=== PATIENT | female | born 1960 | race Caucasian/White ===

== ENCOUNTER → 2016-11-07 | Outpatient (CLI) | payer MEDICAID ==
[~2016-11-07] MED LIST: methylPREDNISolone 80 MG/ML (DEPO MEDROL) VIAL IM ONE
--- NOTE | 2016-11-08 11:24 | PAIN MANAGEMENT ---
Date of note: 11/07/2016 Procedure: Transforaminal epidural steroid injection at L4-5 on the right side Total fluoroscopic exposure time: 1 minute 32 seconds This is a 56-year-old patient of Dr. Aniket Merritt. The patient presents with a longstanding history of back pain. She has had multiple lumbar surgeries and cervical surgeries. She has pain, primarily in the right leg, dermatome level of L4. Informed consent was achieved for an epidural steroid using a transforaminal approach and fluoroscopy at L4-5. She was placed in prone position. Informed consent was achieved. The patient was placed in the prone position in the treatment room with fluoroscopy. The target pedicle was identified in the oblique view. The area was prepped and draped using aseptic technique. The skin and overlying tissues were localized using 3 mL of 1% PF lidocaine using a 25-gauge 1.5-inch needle. A 25-gauge spinal needle was advanced within the safe triangle area to the epidural space. AP view noted proper placement. No blood, cerebral spinal fluid, pain, or paresthesia was noted with aspiration on entry of the epidural space. A 1 mL solution of Isovue 240, 0.5 ml was injected showing good spread. AP view revealed spread of contrast medially. The patient was given 1 mL of Depo-Medrol 40 mg in the transforaminal space. The patient was taken to the [facility] and released after approximately 15 minutes with proper arm strength and vitals. I have asked the patient to call me in 3 days. I will follow their progress.
== END ==
LOC: PMC 12:40
PROVIDERS: ATTEND Neurological Surgery
DX: M48.06 Spinal stenosis, lumbar region (principal)
CPT/HCPCS: 64483; J1040